=== PATIENT | male | born 1990 | race African-American/Black ===

== ENCOUNTER 2016-05-18 05:04 | Emergency (ER) | payer SELFPAY ==
[2016-05-18 05:08] VITALS: BP 133/66; PULSE 59; RESP 18; TEMP 97.9; O2SAT 99
[2016-05-18 05:49] LABS: HEMATOCRIT 36.8 % (39.0-51.0); MEAN CELL VOLUME 70.6 FL (80.0-100.0); MEAN CORPUSCULAR HEMOGLOBIN 23.3 PG (27.0-34.0); MEAN CORPUSCULAR HGB CONC 32.9 % (32.0-36.0); PLATELET COUNT 265 TH/MM3 (150-450); RED BLOOD COUNT 5.21 MIL/MM3 (4.50-5.90); RED CELL DISTRIBUTION WIDTH 16.7 % (11.6-17.2); WHITE BLOOD COUNT 7.7 TH/MM3 (4.0-11.0)
[2016-05-18 05:52] LABS: REVIEW FLAG FINAL
[2016-05-18 06:05] LABS: BICARBONATE 30.4 MEQ/L (21.0-32.0); POTASSIUM 3.7 MEQ/L (3.5-5.1)
[2016-05-18] MEDS ORDERED: SODIUM CHLORIDE 0.9% FLUSH 5 ML FLUSH IVF PRN (06:15)
[2016-05-18 06:24] VITALS: RESP 14; O2SAT 100
--- NOTE | 2016-05-18 06:38 | RADRPT ---
EXAM DATE/TIME: 05/18/2016 06:16 [place] COMPARISON: No previous studies available for comparison. INDICATIONS : Chest pain. MEDICAL HISTORY : None. SURGICAL HISTORY : None. ENCOUNTER: Initial ACUITY: 1 day PAIN SCORE: 3/10 LOCATION: Bilateral chest FINDINGS: A single view of the chest demonstrates the lungs to be symmetrically aerated without evidence of mas s, infiltrate or effusion. The cardiomediastinal contours are unremarkable. Osseous structures are intact. CONCLUSION: Normal examination for a patient of this age. Tato Pitts MD on May 18, 2016 at 6:36 Board Certified Radiologist. This report was verified electronically.
--- NOTE | 2016-05-18 06:42 | PD ---
HPI Chief Complaint: Chest Pain Time Seen by Provider: 06:03 Travel History International Travel<30 days: No Contact w/Intl Traveler<30days: No Traveled to known affect area: No History of Present Illness HPI 26-year-old male arrives to the ER with left shoulder pain. He's had a for a few weeks now. He is a aleman. Pain is primarily in the region of the infrascapular distribution. It made it difficult for him asleep at night. The patient smokes tobacco at least a couple packs per day. The pain is worse with palpation. He also experiences crepitus with range of motion of the left shoulder. He's had no numbness tingling in the hand. He describes a vague retrosternal pain, mild. He has no personal history start her heart disease. He denies any personal history of early-onset coronary disease in the family which she is aware. He carries no medical diagnosis as of yet. [facility] Past Medical History Medical History: Denies Significant Hx Past Surgical History Surgical History: No Previous Surgery Social History Alcohol Use: Yes (OCC) Tobacco Use: Yes ("TOO MUCH") Substance Use: No (PT DENIES) Allergies-Medications (Allergen,Severity, Reaction): Coded Allergies: No Known Allergies (Unverified , 05/18/16) Reported Meds & Prescriptions Reported Meds & Active Scripts Active No Active Prescriptions or Reported Medications Review of Systems Except as stated in HPI: all other systems reviewed are Neg Physical Exam Narrative GENERAL: 26-year-old male pleasant no acute distress SKIN: Warm and dry. HEAD: Atraumatic. Normocephalic. EYES: Pupils equal and round. No scleral icterus. No injection or drainage. ENT: No nasal bleeding or discharge. Mucous membranes pink and moist. NECK: Trachea midline. No JVD. CARDIOVASCULAR: Regular rate and rhythm. RESPIRATORY: No accessory muscle use. Clear to auscultation. Breath sounds equal bilaterally. GASTROINTESTINAL: Abdomen soft, non-tender, nondistended. Hepatic and splenic margins not palpable. MUSCULOSKELETAL: Extremities without clubbing, cyanosis, or edema. No obvious deformities. Moderate tenderness along the infrascapular musculature on the left side. 2+ radial artery pulse. Minimal crepitus with range of motion of the left shoulder. Motor function/strength is equal bilaterally. NEUROLOGICAL: Awake and alert. No obvious cranial nerve deficits. Motor grossly within normal limits. Five out of 5 muscle strength in the arms and legs. Normal speech. PSYCHIATRIC: Appropriate mood and affect; insight and judgment normal. Data Data Last Documented VS Vital Signs Date Time Temp Pulse Resp B/P Pulse Ox O2 Delivery O2 Flow Rate FiO2 05/18/16 06:24 14 100 Room Air 05/18/16 05:08 97.9 59 133/66 VS reviewed Orders Cbc No Diff, Includes Plts (05/18/16 05:31) Basic Metabolic Panel (Bmp) (05/18/16 05:31) Electrocardiogram (05/18/16 06:03) Chest, Single Ap (05/18/16 06:03) Ecg Monitoring (05/18/16 06:03) Oximetry (05/18/16 06:03) Oxygen Administration (05/18/16 06:03) Sodium Chloride 0.9% Flush (Ns Flush) (05/18/16 06:15) Labs Laboratory Tests Test 05/18/16 05:36 White Blood Count 7.7 TH/MM3 Red Blood Count 5.21 MIL/MM3 Hemoglobin 12.1 GM/DL Hematocrit 36.8 % Mean Corpuscular Volume 70.6 FL Mean Corpuscular Hemoglobin 23.3 PG Mean Corpuscular Hemoglobin 32.9 % Concent Red Cell Distribution Width 16.7 % Platelet Count 265 TH/MM3 Mean Platelet Volume 7.2 FL Sodium Level 140 MEQ/L Potassium Level 3.7 MEQ/L Chloride Level 104 MEQ/L Carbon Dioxide Level 30.4 MEQ/L Anion Gap 6 MEQ/L Blood Urea Nitrogen 15 MG/DL Creatinine 1.27 MG/DL Estimat Glomerular Filtration 69 ML/MIN Rate Random Glucose 106 MG/DL Calcium Level 8.6 MG/DL [facility] Medical Decision Making Medical Screen Exam Complete: Yes Emergency Medical Condition: Yes Medical Record Reviewed: Yes Differential Diagnosis NSTEMI, unstable angina, coronary vasospasm, PE, PTX, aortic dissection, pericarditis, myocarditis, endocarditis, PNA, esophageal disease, aneurysm, musculoskeletal etiologies, anxiety, cocaine/sympathomimetic abuse Narrative Course EKG: sinus rate 69 normal axis/intervals Last 24 hours Impressions Chest X-Ray 05/18/16 0603 Signed Impressions: Service Date/Time: Wednesday, May 18, 2016 06:16 - CONCLUSION: Normal examination for a patient of this age. Tato Pitts MD CBC & BMP Diagram 05/18/16 05:36 The patient reassured. Lifestyle and modification discussed. He's ready for discharge Diagnosis Primary Impression: Pain of left scapula Referrals: Primary Care Physician 2 days Additional Instructions: You have a choice when it comes to health care, and we are glad that you chose [facility]. Hopefully, we have met your expectations on today's visit. You are welcome to return to [facility] at any time, as we are committed to meeting the health care needs of our community. Med/Other Pt SpecificInfo: No Change to Meds Scripts No Active Prescriptions or Reported Meds Disposition: 01 DISCHARGE HOME Condition: Trev Amezquita MD May 18, 2016 06:42
[2016-05-18 07:28] VITALS: BP 115/54; PULSE 76; RESP 16; O2SAT 100
--- NOTE | 2016-05-18 16:42 | EKG ---
Date Performed: 05/18/2016 Time Performed: 05:25:55 PTAGE: 26 years EKG: SINUS BRADYCARDIA BORDERLINE ECG NO PREVIOUS TRACING DOCTOR: Elizabeth Peña Interpretating Date/Time 05/18/2016 16:36:14
== END 2016-05-18 07:30 | disposition home or self-care (01) ==
LOC: NEPE 05:04
DX: M25.512 Pain in left shoulder (principal); R94.31 Abnormal electrocardiogram [ECG] [EKG]; F17.200 Nicotine dependence, unspecified, uncomplicated
CPT/HCPCS: 71010; 80048; 85027; 93005